=== PATIENT | female | born 1990 | race Caucasian/White ===

== ENCOUNTER 2016-09-03 01:52 | Emergency (ER) | payer MEDICAID, OTHER ==
[~2016-09-03] VITALS: Ht 162.6 cm; Wt 128.4 kg
[~2016-09-03 01:52] MED LIST: ONDA4TAB35 PO
[2016-09-03 01:59] VITALS: Ht 162.6 cm; Wt 128.4 kg
--- NOTE | 2016-09-03 02:47 | ERD ---
ER Documentation Chief Complaint Date/Time DATE: 09/03/16 TIME: 02:45 Chief Complaint CWP and Left arm pain x1 wk HPI 25-year-old female presents to emergency department for complaints of left- sided chest radiating Into the left arm started one week ago, she describes the pain as sharp pain, 6/10, intermittent, not better or worse with anything. Patient has been having it on and off. Patient did not take any medications of her symptoms. Patient denies any heavy lifting. Patient denies any trauma and affected area. Patient denies any irregular heartbeat but has been having on and off palpitations. Patient denies any dizziness. ROS All systems reviewed and are negative except as per history of present illness. Medications Home Meds Active Scripts Ondansetron Hcl* (Zofran* ODT) 4 mg -ODT Tab.disper, 4 MG PO Q6 Y for NAUSEA AND /OR VOMITING, #10 TAB Prov:STELLA LINARES PA-C 11/05/15 Allergies Allergies: Coded Allergies: No Known Allergy (Unverified , 11/05/15) PMhx/Soc Medical and Surgical Hx: pt denies Surgical Hx History of Surgery: No Anesthesia Reaction: No Hx Neurological Disorder: Yes (seizures) Hx Respiratory Disorders: No Hx Cardiac Disorders: No Hx Psychiatric Problems: No Hx Miscellaneous Medical Probl: No Hx Alcohol Use: Yes (OCASSIONAL ) Hx Substance Use: No Hx Tobacco Use: No Smoking Status: Never smoker FmHx Family History: No coronary disease, No diabetes, No other Physical Exam Vitals Vital Signs Date Time Temp Pulse Resp B/P Pulse Ox O2 Delivery O2 Flow Rate FiO2 09/03/16 01:59 98.9 85 18 144/90 99 Physical Exam GENERAL: The patient is well developed and appropriate for usual state of health, in no apparent distress. CHEST: Clear to auscultation bilaterally. There are no rales, wheezes or rhonchi. HEART: Regular rate and rhythm. No murmurs, clicks, rubs or gallops. No S3 or S4. ABDOMEN: Soft, nontender and nondistended. Good bowel sounds. No rebound or guarding. No gross peritonitis. No gross organomegaly or masses. No Godoy sign or McBurney point tenderness. BACK: No midline or flank tenderness. EXTREMITIES: Equal pulses bilaterally. There is no peripheral clubbing, cyanosis or edema. No focal swelling or erythema. Full range of motion. Grossly neurovascularly intact. NEURO: Alert and oriented. Cranial nerves 2-12 intact. Motor strength in all 4 extremities with 5/5 strength. Sensation grossly intact. Normal speech and gait. SKIN: There is no apparent rash or petechia. The skin is warm and dry. HEMATOLOGIC AND LYMPHATIC: There is no evidence of excessive bruising or lymphedema. No gross cervical, axillary, or inguinal lymphadenopathy. Result Diagram: 09/03/1625109/03/16251 Results 24 hrs Laboratory Tests Test 09/03/16 02:52 Alanine Aminotransferase (ALT/SGPT) 29IU/L Albumin 3.9g/dl Albumin/Globulin Ratio 0.97 Alkaline Phosphatase 128IU/L Anion Gap 16 Aspartate Amino Transf (AST/SGOT) 20IU/L Basophils # 0.010^3/ul Basophils % 0.4% Blood Urea Nitrogen 11mg/dl Calcium Level 9.0mg/dl Carbon Dioxide Level 26mmol/L Chloride Level 103mmol/L Creatinine 0.51mg/dl Direct Bilirubin 0.00mg/dl Eosinophils # 0.110^3/ul Eosinophils % 1.5% Globulin 4.00g/dl Glucose Level 101mg/dl Hematocrit 44.0% Hemoglobin 15.0g/dl Indirect Bilirubin 0.2mg/dl Lymphocytes # 3.510^3/ul Lymphocytes % 36.7% Mean Corpuscular Hemoglobin 32.0pg Mean Corpuscular Hemoglobin Concent 34.1g/dl Mean Corpuscular Volume 93.8fl Mean Platelet Volume 8.3fl Monocytes # 0.610^3/ul Monocytes % 6.0% Neutrophils # 5.310^3/ul Neutrophils % 55.4% Nucleated Red Blood Cells # 0.010^3/ul Nucleated Red Blood Cells % 0.0/100WBC Platelet Count 04119^3/UL Potassium Level 4.1mmol/L Red Blood Count 4.6910^6/ul Red Cell Distribution Width 13.1% Sodium Level 141mmol/L Total Bilirubin 0.2mg/dl Total Protein 7.9g/dl Troponin I < 0.012ng/ml White Blood Count 9.510^3/ul EKG was done, read by me and is normal sinus rhythm at a rate of 81 bpm normal axis, there is no ST changes or changes in the EKG that indicates any cardiac emergencies at this time. Patient's EKG was also reviewed by Dr. Lake. Impression: no acute findings on EKG PROCEDURE: XR Chest. CLINICAL INDICATION: Chest pain. TECHNIQUE: Single frontal chest x-ray. COMPARISON: None. FINDINGS: The cardiomediastinal silhouette is unremarkable. There is minimal bibasilar atelectasis.. No focal infiltrate is seen. There is no pleural effusion. There is no pneumothorax. The osseous structures are unremarkable. IMPRESSION: Minimal bibasilar atelectasis. RPTAT: [facility]VK .Jesse Lara MD, MD Date Time Electronically viewed and signed by .Jesse Lara MD, MD on 09/03/2016 03:01 .K/ CC: CHILO SPRING NP Procedures/MDM Medical Decision Making: Patient symptoms most likely is consistent with atypical chest pain, possible anxiety, possible musculoskeletal pain. There is low suspicion for cardiopulmonary emergencies at this time. Patient has low risk factors. EKG is normal, there is no changes in the EKG that indicates cardiac emergencies. Chest X-ray does not show cardiopulmonary emergencies at this time. There is low suspicion for aortic aneurysm, myocardial infarction, pneumothorax, pleural effusion, pulmonary embolism, or any other cardiopulmonary emergencies at this time. Cardiac markers are normal. Prescription was given for ibuprofen for pain, is advised to follow-up with primary care doctor for reevaluation symptoms. Patient was advised return to emergency department for new worsening symptoms. Departure Diagnosis: Primary Impression: Chest pain Chest pain type: unspecified Qualified Code: R07.9 - Chest pain, unspecified type Condition: Stable Patient Instructions: Chest Pain, Uncertain Cause Additional Instructions: Prescription was given for ibuprofen for pain, is advised to follow-up with primary care doctor for reevaluation symptoms. Patient was advised return to emergency department for new worsening symptoms. CHILO SPRING NP Sep 03, 2016 02:47
--- NOTE | 2016-09-03 03:02 | RADRPT ---
PROCEDURE: XR Chest. CLINICAL INDICATION: Chest pain. TECHNIQUE: Single frontal chest x-ray. COMPARISON: None. FINDINGS: The cardiomediastinal silhouette is unremarkable. There is minimal bibasilar atelectasis.. No focal infiltrate is seen. There is no pleural effusion. There is no pneumothorax. The osseous structur es are unremarkable. IMPRESSION: Minimal bibasilar atelectasis. RPTAT: [facility]VK .Jesse Lara MD, Date Time Electronically viewed and signed by .Jesse Lara MD, on 09/03/2016 03:01 .K/
[2016-09-03 03:05] LABS: MEAN CORPUSCULAR HGB CONC 34.1 g/dl (32.0-37.0); MEAN CORPUSCULAR VOLUME 93.8 fl (82.0-101.0); MEAN PLATELET VOLUME 8.3 fl (7.4-10.4); NEUTROPHILS % 55.4 % (39.0-77.0); PLATELET COUNT 296 10^3/UL (140-440); RED BLOOD COUNT 4.69 10^6/ul (4.20-5.40); RED CELL DISTRIBUTION WIDTH 13.1 % (11.5-14.5); UNCORRECTED WBC 9.5 10^3/ul (4.8-10.8); WHITE BLOOD COUNT 9.5 10^3/ul (4.8-10.8)
[2016-09-03 03:06] LABS: BASOPHILS % 0.4 % (0.0-2.0); EOSINOPHILS # 0.1 10^3/ul (0.0-0.5); EOSINOPHILS % 1.5 % (0.0-7.0); LYMPHOCYTES # 3.5 10^3/ul (0.8-2.9); LYMPHOCYTES % 36.7 % (15.0-51.0); MONOCYTE # 0.6 10^3/ul (0.3-0.9); NEUTROPHIL # 5.3 10^3/ul (1.6-7.5)
[2016-09-03 03:08] LABS: CONDITION 1
[2016-09-03 03:09] LABS: ALBUMIN 3.9 g/dl (3.3-4.9); CHLORIDE 103 mmol/L (97-110); POTASSIUM 4.1 mmol/L (3.5-5.1); SODIUM 141 mmol/L (135-144)
[2016-09-03 03:11] LABS: ANION GAP 16 (8-16); BILIRUBIN,INDIRECT 0.2 mg/dl (0-1.1); BILIRUBIN,TOTAL 0.2 mg/dl (0.2-1.3); CARBON DIOXIDE 26 mmol/L (21-31); CREATININE 0.51 mg/dl (0.44-1.00)
[2016-09-03 03:12] LABS: ALANINE AMINOTRANSFERASE 29 IU/L (13-69); ALBUMIN/GLOBULIN RATIO 0.97; ALKALINE PHOSPHATASE 128 IU/L (42-121); ASPARTATE AMINO TRANSFERASE 20 IU/L (15-46); BLOOD UREA NITROGEN 11 mg/dl (7-20); GLUCOSE 101 mg/dl (70-220); TOTAL PROTEIN 7.9 g/dl (6.1-8.1)
[2016-09-03 03:55] LABS: TROPONIN-I < 0.012 ng/ml (0.00-0.12)
[2016-09-03] MEDS ORDERED: IBUP-1542 PO (04:03)
[2016-09-03 04:21] VITALS: BP 135/82; PULSE 78; RESP 18; TEMP 98.3
== END 2016-09-03 04:23 | disposition home health service (06) ==
LOC: FTE 01:52
DX: R07.89 Other chest pain (principal)
CPT/HCPCS: 71010; 80053; 84484; 85025; 93005